=== PATIENT | male | born 1945 | race Caucasian/White ===

== ENCOUNTER 2019-06-03 14:28 | Day surgery (SDC) | payer MEDICARE, OTHER ==
[2019-06-03] MEDS ORDERED: LIDOCAINE 2% MDV (20MG/ML) 20ML VIAL IV ONE (14:29)
[2019-06-03] MEDS ORDERED: PROPOFOL 10 MG/ML VIAL IV ONE (14:29)
--- NOTE | 2019-06-04 08:41 | Operative Note ---
OPERATION: COLONOSCOPY with biopsy and photo. PREOPERATIVE DIAGNOSIS: Change in bowel habits and new-onset diarrhea. POSTOPERATIVE DIAGNOSES: 1. Questionable cecal polypoid mass. 2. Otherwise normal exam. 3. Rule out microscopic colitis. PROCEDURE: After informed consent was obtained from the patient, he was placed in the left lateral decubitus position in the endoscopy suite, sedated and monitored by the department of anesthesia. Digital rectal exam was unremarkable. A well-lubricated [id number] colonoscope was inserted into the rectum and advanced to the cecum. The cecum and cecal bulb demonstrated a circular somewhat firm 2.0 cm polypoid mass-like abnormality. This area was photographed. It had some slight central ulceration. Multiple biopsies were obtained for histology. The terminal ileum was inspected and appeared unremarkable. The ascending colon, transverse colon, descending colon, sigmoid colon, and rectum were unremarkable as well. Random biopsies were obtained to rule out microscopic colitis. J-turn views of the anorectum and forward views of the rectum were unrevealing. The endoscope was straightened, the rectal ampulla deflated, and the endoscope was removed. RECOMMENDATIONS: I will await results of tissue histology. If the cecal abnormality is a malignancy, I will refer him to Dr. Patel for further care. As always, thank you for allowing me to participate in the healthcare of your patients. LANI
== END 2019-06-03 15:33 | disposition home or self-care (01) ==
LOC: HOP 14:28
PROVIDERS: ATTEND Internal Medicine Gastroenterology
DX: R19.4 Change in bowel habit (principal); D12.0 Benign neoplasm of cecum; K52.832 Lymphocytic colitis; Z86.010 Personal history of colon polyps; I10 Essential (primary) hypertension; E78.00 Pure hypercholesterolemia, unspecified; E03.9 Hypothyroidism, unspecified

== ENCOUNTER 2019-08-26 08:11 | Day surgery (SDC) | payer MEDICARE, OTHER ==
[2019-08-26] MEDS ORDERED: PROPOFOL 10 MG/ML VIAL IV ONE (08:12)
[2019-08-26] MEDS ORDERED: LIDOCAINE 2% MDV (20MG/ML) 20ML VIAL IV ONE (08:12)
--- NOTE | 2019-08-27 06:50 | Operative Note ---
OPERATION: COLONOSCOPY with cold snare polypectomy x2. PREOPERATIVE DIAGNOSIS: History of polyps. POSTOPERATIVE DIAGNOSES: 1. Cecal polyp. 2. Sigmoid polyp. 3. Sigmoid diverticulosis. PREPARATION QUALITY: Good. ESTIMATED BLOOD LOSS: Minimum. SPECIMENS: Cecal polyp and sigmoid polyp. COMPLICATIONS: None apparent. PROCEDURE: After informed consent was obtained from the patient, he was placed in the left lateral decubitus position in the endoscopy suite, sedated and monitored by the department of anesthesia. Digital rectal exam was unremarkable. A well-lubricated [id number] colonoscope was inserted into the rectum and advanced to the cecum. There was a sessile polyp approximately 1.2 cm in diameter removed in piecemeal fashion with a cold snare. No persistent bleeding was noted. The remainder of the cecum, ascending colon, transverse colon, and descending colon were unremarkable. There were mild sigmoid diverticular changes as well as a 4 mm sigmoid polyp. The polyp was removed with a cold snare. Minimal bleeding was noted. The rectum was unremarkable in forward and J-turn views. The endoscope was straightened, the rectal ampulla deflated, and the endoscope was removed. RECOMMENDATIONS: The patient should resume his medications and diet. He will require repeat exam in 1-3 years pending tissue histology. As always, thank you for allowing me to participate in the healthcare of your patients. LANI
== END 2019-08-26 10:40 | disposition home or self-care (01) ==
LOC: HOP 08:11
PROVIDERS: ATTEND Internal Medicine Gastroenterology
DX: R19.4 Change in bowel habit (principal); Z86.010 Personal history of colon polyps; D12.0 Benign neoplasm of cecum; D12.5 Benign neoplasm of sigmoid colon; I10 Essential (primary) hypertension; E78.00 Pure hypercholesterolemia, unspecified; E03.9 Hypothyroidism, unspecified; Z79.02 Long term (current) use of antithrombotics/antiplatelets; K57.30 Diverticulosis of large intestine without perforation or abscess without bleeding